=== PATIENT | female | born 1945 | race Caucasian/White ===

== ENCOUNTER 2016-07-13 07:13 | Outpatient (CLI) | payer OTHER ==
[2014-07-22 12:53] VITALS: BP 148/79
== END 2016-07-13 07:14 ==
LOC: LAB 07:13
PROVIDERS: ATTEND Internal Medicine
DX: E78.5 Hyperlipidemia, unspecified (principal)
CPT/HCPCS: 36415; 80061; 82330; 83970

== ENCOUNTER 2016-10-28 07:12 | Outpatient (CLI) | payer OTHER ==
[2014-07-22 12:53] VITALS: BP 148/79
== END 2016-10-28 07:13 ==
LOC: LAB 07:12
PROVIDERS: ATTEND Internal Medicine
DX: E83.52 Hypercalcemia (principal); N63 Unspecified lump in breast; K06.9 Disorder of gingiva and edentulous alveolar ridge, unspecified
CPT/HCPCS: 36415; 80061; 80069; 82306

== ENCOUNTER → 2017-12-01 | Outpatient (CLI) | payer OTHER ==
[2014-07-22 12:53] VITALS: BP 148/79
[2017-12-01 15:38] LABS: BASOPHILS % 0.4 (0.0-1.5); EOSINOPHILS % 4.7 % (0.0-6.8); MEAN CORPUSCULAR HEMOGLOBIN 32.3 pg (28.0-34.0); MEAN CORPUSCULAR VOLUME 94.8 fl (80.0-100.0); MONOCYTES % 4.6 % (0.0-11.0); NEUTROPHILS # 3.3 # k/uL (1.4-7.7)
[2017-12-01 22:01] LABS: TOTAL PROTEIN 7.1 g/dL (6.0-8.5)
== END ==
LOC: LAB 15:22
PROVIDERS: ATTEND Internal Medicine
DX: Z00.00 Encounter for general adult medical examination without abnormal findings (principal); I10 Essential (primary) hypertension; E78.5 Hyperlipidemia, unspecified
CPT/HCPCS: 36415; 80053; 80061; 84443; 85025

== ENCOUNTER 2017-12-06 11:04 | Outpatient (CLI) | payer OTHER ==
[2014-07-22 12:53] VITALS: BP 148/79
--- NOTE | 2017-12-06 13:40 | Diagnostic Imaging Report ---
BHARAT DAVIS [facility] [id number] [facility] [address] [address] Report Submission Date: Dec 06, 2017 12:05:20 PM CDT Patient Study Name: PRECIOUS CARRILLO Date: Dec 06, 2017 11:16:19 AM CDT Modality Type: DX Gender: F Description: SPINE : 47 Institution: [facility] Physician: BHARAT DAVIS Examination: Plain film lumbar spine History: PAIN; NO KNOWN INJURY X 2 WEEKS HX OF TAKING PROLIA X 2 SHOTS (Hx) Findings: 3 views of the lumbar spine demonstrates osteopenia. No anterior compression. L5/S1 listhesis with joint space narrowing and facet degenerative changes. Atherosclerotic disease involving the abdominal aorta. No soft tissue abnormalities. Mild narrowing of the T11 - not fully evaluated. Impression: Osteopenia and degenerative changes. No lumbar vertebral body compression deformity. Electronically signed on Dec 06, 2017 12:05:20 PM CDT by: Taras ESPANA
== END 2017-12-06 13:49 ==
LOC: RAD 11:04
PROVIDERS: ATTEND Internal Medicine
DX: R52 Pain, unspecified (principal)
CPT/HCPCS: 72100

== ENCOUNTER 2018-06-15 07:04 | Outpatient (CLI) | payer OTHER ==
[2014-07-22 12:53] VITALS: BP 148/79
== END 2018-06-15 07:06 ==
LOC: LAB 07:04
PROVIDERS: ATTEND Internal Medicine
DX: R94.5 Abnormal results of liver function studies (principal); I10 Essential (primary) hypertension
CPT/HCPCS: 36415; 80061; 80076

== ENCOUNTER 2018-12-13 09:31 | Outpatient (CLI) | payer OTHER ==
[2014-07-22 12:53] VITALS: BP 148/79
[2018-12-13 10:10] LABS: BASOPHILS % 0.5 % (0.0-1.5); NEUTROPHILS # 3.1 # k/uL (1.4-7.7)
[2018-12-13 10:13] LABS: eGFR (Non-African) > 60
== END 2018-12-13 09:33 ==
LOC: LAB 09:31
PROVIDERS: ATTEND Internal Medicine
DX: Z13.21 Encounter for screening for nutritional disorder (principal); Z13.228 Encounter for screening for other metabolic disorders; Z13.0 Encounter for screening for diseases of the blood and blood-forming organs and certain disorders involving the immune mechanism
CPT/HCPCS: 36415; 80053; 85025